=== PATIENT | male | born 1945 | race Caucasian/White ===

== ENCOUNTER → 2024-06-24 15:15 | Outpatient (REF) | payer MEDICARE, OTHER, SELFPAY | LOC: RAD 15:15 | PROVIDERS: ATTENDING PHYSICIAN Student in an Organized Health Care Education/Training Program | DX: M79.18 Myalgia, other site (principal) | CPT/HCPCS: 72220; 73522 ==

== ENCOUNTER 2024-07-22 06:26 | Outpatient (RCR) | payer MEDICARE, OTHER, SELFPAY | END 2024-07-22 23:59 | disposition home or self-care (01) | LOC: RPT 06:26 | PROVIDERS: ATTENDING PHYSICIAN Student in an Organized Health Care Education/Training Program; FAMILY PHYSICIAN Family Medicine | DX: S86.112D Strain of other muscle(s) and tendon(s) of posterior muscle group at lower leg level, left leg, subsequent encounter (principal); R20.2 Paresthesia of skin; M79.18 Myalgia, other site; Z73.6 Limitation of activities due to disability; M19.90 Unspecified osteoarthritis, unspecified site | CPT/HCPCS: 97110; 97162 ==

== ENCOUNTER → 2024-08-14 08:30 | Outpatient (REF) | payer MEDICARE, OTHER, SELFPAY ==
[2024-08-14 10:44] LABS: Total Cholesterol 150 mg/dl (50-199); Triglyceride 61 mg/dl (10-149); Very Low Density Lipoprotein 12 mg/dl (0-30)
[2024-08-14 10:54] LABS: HDL Cholesterol 71 mg/dl; LDL Cholesterol, Calculated 67 mg/dl
== END ==
LOC: REG 08:30
PROVIDERS: ATTENDING PHYSICIAN Nurse Practitioner; FAMILY PHYSICIAN Family Medicine
DX: E78.5 Hyperlipidemia, unspecified (principal)
CPT/HCPCS: 36415; 80061

== ENCOUNTER 2024-08-19 09:21 | Outpatient (RCR) | payer MEDICARE, OTHER, SELFPAY | END 2024-08-19 23:59 | disposition home or self-care (01) | LOC: RPT 09:21 | PROVIDERS: ATTENDING PHYSICIAN Student in an Organized Health Care Education/Training Program; FAMILY PHYSICIAN Family Medicine | DX: S86.112D Strain of other muscle(s) and tendon(s) of posterior muscle group at lower leg level, left leg, subsequent encounter (principal); R20.2 Paresthesia of skin; M79.18 Myalgia, other site; Z73.6 Limitation of activities due to disability | CPT/HCPCS: 97110; 97112 ==

== ENCOUNTER 2024-09-19 10:00 | Outpatient (RCR) | payer MEDICARE, OTHER, SELFPAY | END 2024-09-19 13:01 | disposition home or self-care (01) | LOC: RPT 10:00 | PROVIDERS: ATTENDING PHYSICIAN Student in an Organized Health Care Education/Training Program; FAMILY PHYSICIAN Family Medicine | DX: S86.112D Strain of other muscle(s) and tendon(s) of posterior muscle group at lower leg level, left leg, subsequent encounter (principal); R20.2 Paresthesia of skin; M79.18 Myalgia, other site; Z73.6 Limitation of activities due to disability; R20.0 Anesthesia of skin | CPT/HCPCS: 97110; 97112 ==

== ENCOUNTER 2025-09-21 12:31 | Emergency (ER) | payer MEDICARE, OTHER, SELFPAY ==
[2025-09-21 12:40] VITALS: BP 123/59
--- NOTE | 2025-09-21 13:26 | ED.GENMED ---
History of Present Illness
General
Chief Complaint: Head Injury
Source: patient
Exam Limitations: none
Time Seen by Provider: 09/21/25 13:21
Nursing documentation reviewed up to this point in time: agreed with
History of Present Illness
History of Present Illness:
80-year-old male with a past medical history of hypertension, hyperlipidemia, atrial fibrillation on Xarelto who presents to the emergency department with his for evaluation after trip and fall with head strike. Of note patient had a fall a
little less than a month ago and at that time presented to [facility] and was found to have subdural hemorrhage and was admitted there. He was restarted on Xarelto after things stabilized and has remained on it since. He has had some mild
speech issues since his brain bleed. He was at [facility] rehab for 2 weeks after hospitalization and then returned home with his . Yesterday was walking at home and tripped on a power cord and fell forward and hit his face on the ground.
He says he did not lose consciousness. He sustained a minor abrasion of the nose and had transient epistaxis that resolved. Today he disclosed follow-up to his primary doctor and was referred to the ER to be evaluated. He denies any headache or
neck pain, back pain, rib pain, pain in extremities�he reports that he hit his left knee slightly when he fell but does not have any pain and has been ambulatory.
Past History
Past History
ED Past Medical History: Hypercholesterolemia
ED Past Surgical History: Cardiac and Orthopedic
Social History
Personal:
Review of Systems
Review of Systems
All Other Systems: ROS reviewed and negative except as documented in HPI and ROS
Respiratory: Denies trouble breathing
Cardiac: Denies chest pain
ABD/GI: Denies abdominal pain
: Denies flank pain
Musculoskeletal: Denies joint pain, neck pain or back pain
Neurological: Denies dizzy or headache
Phy Exam
Physical Exam
Physical Exam:
General: Awake, alert, oriented x3; no acute distress
Head: Normocephalic, old appearing right frontal hematoma/contusion
Eyes: Conjunctiva normal, pupils equal round reactive bilaterally
Nose: Patient has some very minor swelling and minor abrasion to the nasal bridge; no deformity, no septal hematoma, no active epistaxis noted
Throat: Airway intact, handling secretions
Neck: Trachea midline, no cervical spine tenderness, full range of motion without any pain
Lungs: Breathing comfortably not in distress
Heart: Regular rate; no chest wall tenderness
Abd: Soft, non distended, nontender
Neuro: Cranial nerves grossly intact, mild expressive aphasia which is apparently baseline; motor and sensory intact in extremities
Skin: Warm and dry
Extremities: Very minor bruise to the left knee but no effusion or swelling and good range of motion without pain; rest extremities appear atraumatic
Scores
Heart Failure Risk
Heart Failure Risk Score: Not Applicable
Heart Score for Chest Pain Patients
STEMI patient?: Not applicable
Withdrawal Assessment of Alcohol
Withdrawal Assessment Completed?: Not applicable
Course
Orders/Labs/Results
Orders:
Orders
09/21/25 12:[address] [CT Head W/o Iv Contrast] Stat
Comment:
Reason For Exam: fall on thinners.
09/21/25 13:26
CT Facial Bones W/o Iv Contras Urgent
Comment:
Reason For Exam: nasal trauma from fall forward
Vital Signs
Initial and Last Documented VS:
Initial Vital Signs
Temp Pulse Resp BP Pulse Ox
36.8 C 56 18 123/59 98
09/21/25 12:40 09/21/25 12:40 09/21/25 12:40 09/21/25 12:40 09/21/25 12:40
Last Documented Vital Signs
Temp Pulse Resp BP Pulse Ox
36.8 C 57 18 138/75 98
09/21/25 12:40 09/21/25 14:46 09/21/25 14:46 09/21/25 14:46 09/21/25 14:46
MDM/Problems Addressed
Differential Diagnosis Includes:
Brain bleed (Subdural hemorrhage, subarachnoid hemorrhage, etc), nasal fracture, other facial fractures
MDM/Problems Addressed:
80-year-old male presents after a trip and fall forward yesterday with trauma to the face/nose. He has some minor swelling and abrasion to the nasal bridge but denies any other complaints�he was referred over by his primary doctor as he is on
Xarelto and has recent history of brain bleed for which he required hospitalization. Vitals and exam are as above. Will send for a CT to head and facial bones. Reassess after the above.
CT head no acute intracranial pathology. CT of the face shows multiple fractures�reviewed with patient and and he reportedly had these fractures from his previous fall. Discussed with radiologist and no signs of overlying injury to suggest
that these are acute. Plan to discharge, follow-up with PCP on routine basis. Patient very happy with this plan. All questions answered.
Chronic conditions affecting care:
A-fib on Xarelto complicates fall with head strike
*Radiology
Radiology exam reviewed: radiology read reviewed
*Pulse Oximetry
SaO2: 98
Patient hypoxic: no (98%)
*Critical Care Note
Total Time (30-74mins, 75-104mins- exclusive of procedures): Not Applicable
Data Reviewed
Source: patient and spouse
ED Attending Note
-
Portions of this chart may have been created with voice recognition software.� Occasional wrong word or��sound alike� substitutions may have occurred due to the inherent limitations of voice recognition software.
Discharge Plan
Departure
Patient Disposition: Home (Routine Discharge)
Date of Disposition: 09/21/25
Time of Disposition: 15:17
Patient with high blood pressure during this ER visit?: No
Discharge Problem:
Fracture of nasal bone
Instructions: Facial fractures
Prescriptions:
No Action
folic acid 0.4 MG tablet
0.4 mg PO DAILY
aspirin [Aspir-Low] 81 MG tablet,delayed release (DR/EC)
81 mg PO DAILY
simvastatin 40 MG tablet
40 mg PO HS
calcium carbonate [calcium] 500 MG tablet
500 mg PO DAILY
coenzyme Q10 [Co Q-10] 100 MG capsule
100 mg PO DAILY
Referrals:
Amparo Argueta DO [Family Provider, Family Practice] - Follow up in 1 week
Activity Restrictions/Additional Instructions:
Thank you for visiting the Emergency Department at [facility].
1. Please schedule a follow up appointment as directed. Call first thing tomorrow morning to make an appointment.
2. If indicated, please take your medications as instructed and indicated on discharge paperwork.
3. If any of your symptoms do not improve, or persist, or become more severe within 6-12 hours, please return to the emergency department for further care.
4. Please return to the emergency department if you develop a headache, neck pain/stiffness, fever greater than 100.4F, chest pain, shortness of breath, persistent nausea, vomiting, slurred speech, difficulty walking, numbness/tingling, weakness,
signs of infection or any other symptoms that are worrisome to you.
Please call [phone] if you have any questions.
Interventions
Interventions:
*General Assessment Last Done: 09/21/25 12:40
*Neglect/Abuse Screening Last Done: 09/21/25 12:40
*Risk Screen - Suicide (C-SSRS) Last Done: 09/21/25 12:40
ED- Neurological Assessment Last Done: 09/21/25 14:47
ED-Skin Assessment Last Done: 09/21/25 14:47
Discharge Date and Time
Print Language: BELARUSIAN
[2025-09-21 14:46] VITALS: BP 138/75
== END 2025-09-21 16:09 | disposition home or self-care (01) ==
LOC: EMR 12:31
PROVIDERS: EMERGENCY PHYSICIAN Emergency Medicine; FAMILY PHYSICIAN Family Medicine
DX: S02.2XXA Fracture of nasal bones, initial encounter for closed fracture (principal); S80.02XA Contusion of left knee, initial encounter; S00.31XA Abrasion of nose, initial encounter; W18.09XA Striking against other object with subsequent fall, initial encounter; I10 Essential (primary) hypertension; E78.00 Pure hypercholesterolemia, unspecified; I48.91 Unspecified atrial fibrillation; Z79.01 Long term (current) use of anticoagulants; Z95.1 Presence of aortocoronary bypass graft; Z91.81 History of falling
CPT/HCPCS: 99284; 70450; 70486